=== PATIENT | female | born 1950 | race Caucasian/White ===

== ENCOUNTER 2016-10-14 09:37 | Emergency (ER) | payer MEDICARE, OTHER ==
[~2016-10-14] VITALS: Ht 162.6 cm; Wt 72.1 kg
[~2016-10-14 09:37] MED LIST: ASPI-618 PO; FLUOXETINE PO; [UNRECOGNIZED DRUG - REMARK]
--- NOTE | 2016-10-14 09:55 | NUR ---
Patient is resting comfortably in bed with eyes closed, for urine specimen, U/S scan and blood draw at this time. PATIENT IS PAIN FREE AT THIS TIME- no vomiting seen since admitted to ER
[2016-10-14] MEDS ORDERED: IV NORMAL SALINE 1000 ML BAG IV ONE (10:00)
[2016-10-14] MEDS ORDERED: ONDANSETRON 4 MG/2 ML VIAL IV ONE (10:00)
[2016-10-14] MEDS ORDERED: ONDANSETRON 4 MG/2 ML VIAL ONE (10:00)
[2016-10-14 10:33] LABS: BASOPHILS % (AUTO) 0.7 % (0.0-2.0); EOSINOPHILS # (AUTO) 0.1 K/uL (0.0-0.7); EOSINOPHILS % (AUTO) 2.5 % (0.0-7.0); HEMATOCRIT 39.3 % (37-47); HEMOGLOBIN 13.5 G/DL (12.0-16.0); LYMPHOCYTES # (AUTO) 1.1 K/UL (0.8-4.8); MEAN CORPUSCULAR HEMOGLOBIN 29.1 UUG (27.0-31.0); MEAN CORPUSCULAR HGB CONC 35 g/dL (32.0-37.0); MEAN CORPUSCULAR VOLUME 84.5 FL (81.0-99.0); MONOCYTES # (AUTO) 0.4 K/UL (0.1-1.30); MONOCYTES % (AUTO) 7.7 % (0.0-11.0); NEUTROPHILS # (AUTO) 3.3 K/UL (1.8-8.9); NEUTROPHILS % (AUTO) 66.1 % (38.5-71.5); PLATELET COUNT (AUTO) 237 K/UL (150-450); RED BLOOD CELL COUNT(AUTO) 4.65 MIL/UL (4.2-5.4); RED CELL DISTRIBUTION WIDTH 12.8 % (11.5-14.5); WHITE BLOOD COUNT (AUTO) 4.9 K/UL (4.0-11.2)
[2016-10-14 10:34] LABS: CALCIUM 8.6 mg/dL (8.5-10.1); CREATININE 0.6 mg/dL (0.6-1.3); POTASSIUM 4.2 mmol/L (3.5-5.1)
[2016-10-14 10:39] LABS: ALBUMIN 3.6 g/dL (3.4-5.0); BILIRUBIN,DIRECT 0.1 mg/dL (0.0-0.2); BILIRUBIN,TOTAL 0.9 mg/dL (0.2-1.0); TOTAL PROTEIN, SERUM 6.5 g/dL (6.4-8.2)
--- NOTE | 2016-10-14 10:40 | NUR ---
PT CURRENTLY UNABLE TO SPECIFY FLUOXETINE DOSE.
--- NOTE | 2016-10-14 11:12 | NUR ---
Patient is still undecided whether she wants to be admitted or not 2/2 her 96 year old mother will be alone at home.
--- NOTE | 2016-10-14 11:22 | NUR ---
[facility] is now consenting for [facility]
--- NOTE | 2016-10-14 11:45 | NUR ---
endorsed to DOMINIC Tony for lunch relief
--- NOTE | 2016-10-14 12:47 | NUR ---
[facility] hospitalist Dr Atkins wants to see the patient in our ER department before moving this patient to our 2nd floor telemetry unit. No acute change in patient's condition seen. Patient has an adult male visitor at this time.
--- NOTE | 2016-10-14 13:26 | NUR ---
Dr Atkins is now here to evaluate the patient.
--- NOTE | 2016-10-14 13:26 | NUR ---
Indira monk in [facility] - 10/14/16 at 1355 by JOHNNY Ayana Vincent is now here to evaluate the patient.
[2016-10-14 15:32] LABS: *BILIRUBIN,URIN NEGATIVE (NEGATIVE); *BLOOD, URINE Trace-lysed (NEGATIVE); *COLOR,URINE YELLOW (YELLOW); *KETONES,URINE NEGATIVE (NEGATIVE); *PROTEIN,URINE NEGATIVE (NEGATIVE); NITRITE, URINE NEGATIVE (NEGATIVE); UGLUCOSE NEGATIVE (NEGATIVE)
--- NOTE | 2016-10-14 15:32 | NUR ---
1526- IV removed. Catheter intact and site benign. Pressure and 4x4 gauze applied to site. No bleeding noted. Patient discharged to home in stable conditon. Written and verbal after care instructions given to patient. Copies of all the tests provided to patient. Patient verbalizes understanding of instructions. Patient ambulated with steady gait.
[2016-10-14 15:41] LABS: *CLARITY,URINE SLIGHTLY HAZY (CLEAR); LEUKOCYTE ESTERASE ,URINE TRACE (NEGATIVE)
[2016-10-14 15:42] LABS: BACTERIA,URINE FEW /HPF (NONE SEEN); MUCUS,URINE FEW /LPF (0-FEW); SQUAMOUS EPITHELIAL CELL,UR MODERATE /HPF (NONE SEEN)
== END 2016-10-14 15:34 | disposition home or self-care (01) ==
LOC: ER 09:37
DX: I24.9 Acute ischemic heart disease, unspecified (principal); E78.00 Pure hypercholesterolemia, unspecified; F41.9 Anxiety disorder, unspecified; Z79.82 Long term (current) use of aspirin
CPT/HCPCS: 36415; 70030-TC; 71010; 83690; 85025; 85730; 93005; A4663; J2405; J7030

== ENCOUNTER 2019-06-23 11:32 | Emergency (ER) | payer MEDICARE, MEDICAID ==
[~2019-06-23] VITALS: Ht 154.9 cm; Wt 69.9 kg
[~2019-06-23 11:32] MED LIST changes: -[UNRECOGNIZED DRUG - REMARK]
[2019-06-23] MEDS ORDERED: MAGNESIUM (12:20)
--- NOTE | 2019-06-23 12:20 | NUR ---
PT DOES NOT REMEMBER HER HOME MEDICATION NAMES AND DOSAGES.
[2019-06-23] MEDS ORDERED: ONDANSETRON HCL 4 MG TABLET PO ONE (12:30)
--- NOTE | 2019-06-23 12:34 | NUR ---
Flu swab collected and sent to LAB.
[2019-06-23] MEDS ORDERED: ONDANSETRON ODT 4 MG TAB.RAPDIS ONE (12:58)
[2019-06-23 13:12] LABS: BASOPHILS % (AUTO) 0.4 % (0.0-2.0); EOSINOPHILS # (AUTO) 0.1 K/uL (0.0-0.7); EOSINOPHILS % (AUTO) 0.7 % (0.0-7.0); HEMOGLOBIN 14.6 g/dL (10.9-14.3); LYMPHOCYTES # (AUTO) 1.4 K/uL (20.0-40.0); LYMPHOCYTES % (AUTO) 19.2 % (20.5-51.5); MEAN CORPUSCULAR HEMOGLOBIN 28.7 uug (24.7-32.8); MEAN CORPUSCULAR HGB CONC 33 g/dL (32.3-35.6); MEAN CORPUSCULAR VOLUME 86.3 fL (75.5-95.3); MONOCYTES # (AUTO) 0.4 K/uL (2.0-10.0); MONOCYTES % (AUTO) 5.7 % (0.0-11.0); NEUTROPHILS # (AUTO) 5.5 K/uL (1.8-8.9); PLATELET COUNT (AUTO) 237 K/uL (179-408); WHITE BLOOD COUNT (AUTO) 7.4 K/uL (3.8-11.8)
[2019-06-23 13:14] LABS: CREATININE 0.8 mg/dL (0.6-1.3); POTASSIUM 4.1 mmol/L (3.5-5.1)
--- NOTE | 2019-06-23 13:50 | NUR ---
Patient discharged to home in stable conditon. Written and verbal after care instructions given. Patient verbalizes understanding of instructions.
[2019-06-23 13:51] VITALS: BP 112/58
== END 2019-06-23 13:52 | disposition home or self-care (01) ==
LOC: ER 11:32
DX: R42 Dizziness and giddiness (principal); R11.2 Nausea with vomiting, unspecified; R51 Headache; E78.5 Hyperlipidemia, unspecified; F41.9 Anxiety disorder, unspecified; Z79.82 Long term (current) use of aspirin; Z79.899 Other long term (current) drug therapy
CPT/HCPCS: 36415; 70030-TC; 70450; 85025; 87400; 93005; A4663; Q0162

== ENCOUNTER 2019-07-21 02:50 | Emergency (ER) | payer MEDICARE, MEDICAID ==
[~2019-07-21] VITALS: Ht 157.5 cm; Wt 71.2 kg
[2019-07-21] MEDS ORDERED: HYDROMORPHONE 1 MG/1 ML DISP.SYRIN ONE (03:14)
[2019-07-21] MEDS ORDERED: ONDANSETRON 4 MG/2 ML VIAL ONE (03:14)
[2019-07-21] MEDS ORDERED: HYDROMORPHONE 1 MG/1 ML DISP.SYRIN IV ONE ×2 (03:15→03:30)
[2019-07-21] MEDS ORDERED: ONDANSETRON 4 MG/2 ML VIAL IV ONE (03:15)
[2019-07-21 03:18] LABS: BASOPHILS % (AUTO) 0.4 % (0.0-2.0); EOSINOPHILS # (AUTO) 0.1 K/uL (0.0-0.7); EOSINOPHILS % (AUTO) 0.8 % (0.0-7.0); HEMATOCRIT 39.4 % (31.2-41.9); HEMOGLOBIN 13.2 g/dL (10.9-14.3); LYMPHOCYTES # (AUTO) 1.4 K/uL (20.0-40.0); MEAN CORPUSCULAR HEMOGLOBIN 28.7 uug (24.7-32.8); MEAN CORPUSCULAR HGB CONC 34 g/dL (32.3-35.6); MEAN CORPUSCULAR VOLUME 85.6 fL (75.5-95.3); MONOCYTES # (AUTO) 0.7 K/uL (2.0-10.0); MONOCYTES % (AUTO) 6.9 % (0.0-11.0); NEUTROPHILS # (AUTO) 7.3 K/uL (1.8-8.9); NEUTROPHILS % (AUTO) 76.9 % (38.5-71.5); PLATELET COUNT (AUTO) 239 K/uL (179-408); WHITE BLOOD COUNT (AUTO) 9.5 K/uL (3.8-11.8)
--- NOTE | 2019-07-21 03:20 | NUR ---
Pt ambulated in ER with stable gait for c/o LLQ abdominal pain with nausea since 1900. Pt denies vomiting. Pmx: brain tumor
[2019-07-21 03:34] LABS: CREATININE 0.8 mg/dL (0.6-1.3)
[2019-07-21 03:40] LABS: BILIRUBIN,DIRECT 0.1 mg/dL (0.0-0.2); BILIRUBIN,TOTAL 0.7 mg/dL (0.2-1.0); TOTAL PROTEIN, SERUM 7.3 g/dL (6.4-8.2)
[2019-07-21 04:42] LABS: *BILIRUBIN,URIN NEGATIVE (NEGATIVE); *BLOOD, URINE 1+ (NEGATIVE); *COLOR,URINE YELLOW (YELLOW); *KETONES,URINE NEGATIVE (NEGATIVE); *UROBILINOGEN,URINE 0.2 E.U./dl (NORMAL); LEUKOCYTE ESTERASE ,URINE 1+ (NEGATIVE); NITRITE, URINE NEGATIVE (NEGATIVE); UGLUCOSE NEGATIVE (NEGATIVE)
[2019-07-21] MEDS ORDERED: AMOXICILLIN-CLAVUL 875-125MG TABLET ONE (04:44)
[2019-07-21] MEDS ORDERED: AMOXICILLIN-CLAVUL 875-125MG TABLET PO ONE (04:45)
[2019-07-21 04:49] LABS: *CLARITY,URINE HAZY (CLEAR)
--- NOTE | 2019-07-21 04:53 | NUR ---
IV removed. Catheter intact and site benign. Pressure and 4x4 gauze applied to site. No bleeding noted. Patient discharged to home in stable conditon. Written and verbal after care instructions given. Patient verbalizes understanding of instructions. Patient ambulated out of ER with stable gait.
[2019-07-21 04:54] VITALS: BP 128/76
[2019-07-21 04:59] LABS: WBC,URINE 20-50 /HPF (0-3)
[2019-07-21 05:00] LABS: BACTERIA,URINE MODERATE /HPF (NONE SEEN); SQUAMOUS EPITHELIAL CELL,UR MODERATE /HPF (NONE SEEN)
== END 2019-07-21 04:55 | disposition home or self-care (01) ==
LOC: ER 02:55
DX: K57.32 Diverticulitis of large intestine without perforation or abscess without bleeding (principal); E78.5 Hyperlipidemia, unspecified; F41.9 Anxiety disorder, unspecified; Z79.82 Long term (current) use of aspirin; Z79.899 Other long term (current) drug therapy
CPT/HCPCS: 36415; 74176; 80048; 80076; 81000; 81001; 83690; 85025; 85730; 87086; 96374; 96375; 99284; J1170; J2405; A4663

== ENCOUNTER 2019-09-08 10:47 | Emergency (ER) | payer MEDICARE, OTHER ==
[~2019-09-08] VITALS: Ht 152.4 cm; Wt 69.4 kg
[~2019-09-08 10:47] MED LIST changes: +MAGNESIUM
--- NOTE | 2019-09-08 10:55 | NUR ---
pt walked into er co n/v/d for 24 hrs. pt taking care of elderly mother and only concern is to be tested for covid 19. pt refuses further studies.
--- NOTE | 2019-09-08 11:10 | NUR ---
Patient discharged to home in stable conditon. Written and verbal after care instructions given. Patient verbalizes understanding of instructions.pt waks in steady gait. pt aware of the precautions she has to consider while waiting for the covid results.pt prasad matos respiratory distress, any cough or fever at triage.
== END 2019-09-08 11:20 | disposition home or self-care (01) ==
LOC: ER 10:47
DX: R05 Cough (principal); Z86.011 Personal history of benign neoplasm of the brain; E78.5 Hyperlipidemia, unspecified; R53.81 Other malaise; R11.10 Vomiting, unspecified; R19.7 Diarrhea, unspecified
CPT/HCPCS: 36415; A4663

== ENCOUNTER 2019-11-05 08:56 | Emergency (ER) | payer MEDICARE, MEDICAID ==
[~2019-11-05] VITALS: Ht 157.5 cm; Wt 69.4 kg
[2019-11-05] MEDS ORDERED: HYDROMORPHONE 1 MG/1 ML DISP.SYRIN IM ONE (09:15)
[2019-11-05] MEDS ORDERED: ONDANSETRON 4 MG/2 ML VIAL IM ONE (09:15)
[2019-11-05] MEDS ORDERED: HYDROMORPHONE 2 MG/1 ML DISP.SYRIN ONE (09:16)
[2019-11-05] MEDS ORDERED: ONDANSETRON 4 MG/2 ML VIAL ONE ×2 (09:16→10:13)
--- NOTE | 2019-11-05 09:43 | NUR ---
Patient is resting comfortably on gurney with eyes closed, for U/S@this time
[2019-11-05] MEDS ORDERED: DILTIAZEM HCL 25 MG IV ONE (09:59)
[2019-11-05 10:00] LABS: BASOPHILS % (AUTO) 0.5 % (0.0-2.0); EOSINOPHILS # (AUTO) 0.1 K/uL (0.0-0.7); EOSINOPHILS % (AUTO) 1.1 % (0.0-7.0); HEMATOCRIT 41.1 % (31.2-41.9); HEMOGLOBIN 13.9 g/dL (10.9-14.3); LYMPHOCYTES % (AUTO) 28.4 % (20.5-51.5); MEAN CORPUSCULAR HEMOGLOBIN 29.3 uug (24.7-32.8); MEAN CORPUSCULAR HGB CONC 34 g/dL (32.3-35.6); MEAN CORPUSCULAR VOLUME 86.5 fL (75.5-95.3); MONOCYTES # (AUTO) 0.5 K/uL (2.0-10.0); MONOCYTES % (AUTO) 6.5 % (0.0-11.0); NEUTROPHILS # (AUTO) 4.5 K/uL (1.8-8.9); NEUTROPHILS % (AUTO) 63.5 % (38.5-71.5); PLATELET COUNT (AUTO) 241 K/uL (179-408); RED BLOOD CELL COUNT(AUTO) 4.75 MIL/uL (3.63-4.92)
[2019-11-05] MEDS ORDERED: DILTIAZEM HCL 25 MG IV IV ONE (10:00)
[2019-11-05] MEDS ORDERED: ONDANSETRON 4 MG/2 ML VIAL IV ONE (10:00)
[2019-11-05 10:09] VITALS: BP 143/88
--- NOTE | 2019-11-05 10:47 | NUR ---
IV removed. Catheter intact and site benign. Pressure and 4x4 gauze applied to site. No bleeding noted. Patient discharged to home in stable condition. Written and verbal after care instructions given to patient. Patient verbalized understanding & compliance of instructions. Stressed follow up or return to ER for worsening s/s. Patient said that she wants to wait in room 2A for her caregiver/piledriver carpenter who will come pick her up. MD is aware.
--- NOTE | 2019-11-05 11:42 | NUR ---
Patient ambulated OUT of ER with steady gait. Patient said someone will drive her home.
== END 2019-11-05 11:42 | disposition home or self-care (01) ==
LOC: ER 08:56
DX: I73.00 Raynaud's syndrome without gangrene (principal); E78.5 Hyperlipidemia, unspecified; Z87.898 Personal history of other specified conditions; I51.9 Heart disease, unspecified
CPT/HCPCS: 36415; 85025; 85610; 93005; 93971; 96372; 96374; 96375; 99285; J1170; J2405 ×2; J3490; A4663

== ENCOUNTER 2021-06-26 19:24 | Emergency (ER) | payer MEDICARE, OTHER ==
[~2021-06-26] VITALS: Ht 157.5 cm; Wt 63.5 kg
--- NOTE | 2021-06-26 19:32 | NUR ---
PT BIB [facility] 85 FROM HOME C/O RT UPPER ARM PAIN, STATED SHE HAD SURGERY YESTERDAY AND WAS DISCHARGED WITH PAIN MEDICATION AND NOTED TO BE INEFFECTIVE. PT A/O X4, CLEAR SPEECH, COMPLETE SENTENCES. NO SOB OR LABORED BREATHING, AFEBRILE. DENIES CP/PRESSURE. NO GI/ DISTRESS.
--- NOTE | 2021-06-26 19:58 | NUR ---
DR. ROSA AT BEDSIDE, MSE IN PROGRESS.
[2021-06-26] MEDS ORDERED: OXYC-133 PO (20:10)
[2021-06-26] MEDS ORDERED: ONDA4TAB5 PO (20:10)
[2021-06-26] MEDS ORDERED: HYDROMORPHONE 1 MG/1 ML DISP.SYRIN IM ONE (20:15)
[2021-06-26] MEDS ORDERED: LORAZEPAM 0.5 MG TABLET PO ONE (20:15)
[2021-06-26] MEDS ORDERED: ONDANSETRON ODT 4 MG TAB.RAPDIS SL ONE (20:15)
[2021-06-26] MEDS ORDERED: ONDANSETRON ODT 4 MG TAB.RAPDIS ONE (20:23)
[2021-06-26] MEDS ORDERED: HYDROMORPHONE 1 MG/1 ML DISP.SYRIN ONE (20:24)
[2021-06-26] MEDS ORDERED: LORAZEPAM 0.5 MG TABLET ONE (20:24)
--- NOTE | 2021-06-26 20:33 | NUR ---
Patient discharged to home in stable condition. Written and verbal after care instructions given. Patient verbalizes understanding of instructions. Stressed follow up or return to ER for worsening s/s. Steady gait, picked up by friend and son. No changes in LOC.
[2021-06-26 20:35] VITALS: BP 140/86
== END 2021-06-26 20:37 | disposition home or self-care (01) ==
LOC: ER 19:26
DX: G89.18 Other acute postprocedural pain (principal); M25.511 Pain in right shoulder; R03.0 Elevated blood-pressure reading, without diagnosis of hypertension; E78.5 Hyperlipidemia, unspecified; F41.9 Anxiety disorder, unspecified
CPT/HCPCS: A4663; J1170; Q0162

== ENCOUNTER 2023-05-13 07:12 | Emergency (ER) | payer MEDICARE, OTHER ==
[~2023-05-13] VITALS: Ht 167.6 cm; Wt 72.6 kg
[~2023-05-13 07:12] MED LIST changes: +ONDA4TAB5 PO; +OXYC-133 PO
[2023-05-13] MEDS ORDERED: KETOROLAC TROMETHAMINE 15 MG INJ ONE (07:39)
[2023-05-13] MEDS ORDERED: METOCLOPRAMIDE HCL 10 MG/2 ML VIAL ONE (07:40)
[2023-05-13] MEDS ORDERED: KETOROLAC TROMETHAMINE 15 MG INJ IVP ONE (07:45)
[2023-05-13] MEDS ORDERED: METOCLOPRAMIDE HCL 10 MG/2 ML VIAL IV ONE (07:45)
[2023-05-13 07:53] LABS: BASOPHILS % (AUTO) 0.5 % (0.0-2.0); EOSINOPHILS # (AUTO) 0.1 K/uL (0.0-0.7); LYMPHOCYTES # (AUTO) 1.2 K/uL (0.8-4.8); LYMPHOCYTES % (AUTO) 15.8 % (20.5-51.5); MEAN CORPUSCULAR HEMOGLOBIN 28.4 uug (24.7-32.8); MEAN CORPUSCULAR HGB CONC 33 g/dL (32.3-35.6); MEAN CORPUSCULAR VOLUME 85.1 fL (75.5-95.3); MONOCYTES # (AUTO) 0.4 K/uL (0.1-1.30); MONOCYTES % (AUTO) 5.6 % (0.0-11.0); NEUTROPHILS % (AUTO) 77.1 % (38.5-71.5); PLATELET COUNT (AUTO) 317 K/uL (179-408); RED BLOOD CELL COUNT(AUTO) 4.58 MIL/uL (3.63-4.92); WHITE BLOOD COUNT (AUTO) 7.8 K/uL (3.8-11.8)
[2023-05-13 08:19] LABS: ALANINE AMINOTRANSFERASE 36 U/L (14-59); ALBUMIN 3.6 g/dL (3.4-5.0); ALKALINE PHOSPHATASE 69 U/L (50-136); ASPARTATE AMINOTRANSFERASE 39 U/L (15-37); BILIRUBIN,DIRECT 0.2 mg/dL (0.0-0.2); BILIRUBIN,TOTAL 0.6 mg/dL (0.2-1.0); CALCIUM 10.5 mg/dL (8.5-10.1); CARBON DIOXIDE 26 mmol/L (21-32); CHLORIDE 104 mmol/L (98-107); GLUCOSE 143 mg/dL (74-106); LIPASE 80 U/L (16-77); POTASSIUM 3.2 mmol/L (3.5-5.1); SODIUM SERUM 140 mmol/L (136-145); TOTAL PROTEIN, SERUM 7.3 g/dL (6.4-8.2); UREA NITROGEN, BLOOD 9 mg/dL (7-18)
[2023-05-13 08:22] LABS: DIFFERENTIAL COMMENT 1
[2023-05-13] MEDS ORDERED: SWABABLE VALVE TRANSFER SET EA MC ONE (08:33)
[2023-05-13] MEDS ORDERED: IOHEXOL 300MG/ML 100 ML INFUS..BTL ONE (08:33)
[2023-05-13] MEDS ORDERED: IV NORMAL SALINE 250 ML IV ONE (08:33)
[2023-05-13] MEDS ORDERED: PIPERACILLIN SODIUM/TAZOBACTAM 4.5 G in IV DEXTROSE 5% 50 ML IV STA (09:04)
[2023-05-13] MEDS ORDERED: PIPERACILLIN/TAZO 4.5 GM VIAL IV ONE (09:28)
[2023-05-13] MEDS ORDERED: ONDA4TAB5 PO (10:52)
[2023-05-13 11:01] VITALS: BP 140/61; O2SAT 99
== END 2023-05-13 11:07 | disposition home or self-care (01) ==
LOC: ER 07:12
DX: K57.32 Diverticulitis of large intestine without perforation or abscess without bleeding (principal); E78.5 Hyperlipidemia, unspecified; Z79.899 Other long term (current) drug therapy
CPT/HCPCS: 36415; 71045; 83690; 84484; 85025; 85730; 93005; A4606; A4663; J1885; J2543; J2765; Q9967